=== PATIENT | female | born 1955 | race Caucasian/White ===

== ENCOUNTER → 2016-08-20 | Outpatient (CLI) | payer BC ==
[~2016-08-20] MED LIST: COREG3.125 MG PO; LIPITOR20 MG PO
--- NOTE | ~2016-08-20 | TH ---
Unit #: [id number] #: [id number] Patient: RUI HERRON [id number] [facility]. [place], [place] [address] [id number] O MR#: [id number] NAME: RUI HERRON : 1955 SEX: F STUDY DATE/TIME: 08/20/2016 UNIT: [facility] ROOM: STUDY DESCRIPTION: Attending Physician: Wei Webb M.D. Referring Physician: Wei Webb M.D. Primary Care Physician: Luis Miguel Whitney M.D. CARDIOLOGY REPORT EXAM Stress nuclear study. INDICATION Preoperative back surgery, unable to exercise, history of smoking. SUMMARY The patient was given Lexiscan intravenously while at rest, as well as technetium 99m Cardiolite 10.82 and 31.4 mCi at rest and stress, respectively. Appropriate views were obtained. FINDINGS Heart rate increased from 54 to 94 and blood pressure decreased from 136/74 to 121/74. Patient developed right-sided chest pain and left bundle branch block. The ECG at rest showed biphasic T waves in the anterior and lateral leads with left bundle branch block developing as noted. No significant dysrhythmias were noted. Perfusion images demonstrate severe intestinal artifact at rest, less with stress. There is diaphragmatic artifact both at rest and stress. Otherwise, perfusion is normal and equivalent between rest and stress, although images are off axis and somewhat difficult to obtain. Gated perfusion wall motion analysis demonstrates normal wall motion throughout the myocardium with end-diastolic volume 95 mL and ejection fraction 64%. Planar images show breast attenuation artifact both at rest and stress. There is no significant lung uptake, LV or RV enlargement. Summed stress score is 2 and summed difference score is 1. IMPRESSION 1. Myocardial perfusion scan shows no ischemia or infarction. 2. Based on these findings, patient would be considered low risk for cardiac complication from noncardiac surgery. 3. Normal wall motion with excellent ejection fraction. 4. Left bundle branch block during adenosine is a nonspecific finding. 1. Dictated by... Wei Webb M.D. RUDOLPH/jerri Unit #: [id number] #: [id number] Patient: RUI HERRON TD: 08/22/2016 19:22 JOB #: [id number] CARDIOLOGY REPORT X Wei Webb MD CARDIOLOGY REPORT
== END | disposition home or self-care (01) ==
LOC: CNUC 08:34
DX: Z01.810 Encounter for preprocedural cardiovascular examination (principal); R94.31 Abnormal electrocardiogram [ECG] [EKG]; I44.7 Left bundle-branch block, unspecified; I36.1 Nonrheumatic tricuspid (valve) insufficiency; I37.1 Nonrheumatic pulmonary valve insufficiency; I51.7 Cardiomegaly
CPT/HCPCS: 78452; 93017; 93306; A9500; J2785

== ENCOUNTER → 2016-11-02 | Outpatient (CLI) | payer BC | END | disposition home or self-care (01) | LOC: CSSDAY 10:58 | DX: M81.0 Age-related osteoporosis without current pathological fracture (principal) | CPT/HCPCS: 96372; 96375; J0897 ==